=== PATIENT | female | born 1990 | race Hispanic/Latino ===

== ENCOUNTER 2017-07-08 11:08 | Emergency (ER) | payer BC ==
[2017-07-08 11:12] VITALS: TEMP 97; BMI 24.6
[2017-07-08] MEDS ORDERED: Metoclopramide 10 mg/10 ml Cup PO STA (11:31)
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
[2017-07-08 14:01] VITALS: BP 120/70; PULSE 70; RESP 16; O2SAT 98
== END 2017-07-08 14:03 | disposition home or self-care (01) ==
LOC: H.ER 11:08
DX: S09.90XA Unspecified injury of head, initial encounter (principal); V19.9XXA Pedal cyclist (driver) (passenger) injured in unspecified traffic accident, initial encounter; Y93.55 Activity, bike riding; Y92.410 Unspecified street and highway as the place of occurrence of the external cause
CPT/HCPCS: 70450; 81025; 96372; 99284; J1885